=== PATIENT | female | born 2005 | race Asian ===

== ENCOUNTER 2025-03-11 22:08 | Inpatient (IN) | payer MEDICAID, OTHER ==
[~2025-03-11] VITALS: Ht 154.9 cm; Wt 88.1 kg
[~2025-03-11 22:08] MED LIST: LEVO-72 PO
[2025-03-11] MEDS ORDERED: 0.9% SODIUM CHLORIDE 10 ML SYRINGE IVP PRN (22:45)
[2025-03-11] MEDS: LEVALBUTEROL 1.25 MG/0.5 ML NEB SOLUTION NEB ONE (23:03)
[2025-03-11] MEDS: IPRATROPIUM BROMIDE 0.5 MG/2.5 ML NEB SOLUTION NEB ONE (23:03)
[2025-03-11 23:05] VITALS: PULSE 132; RESP 38; O2SAT 97
[2025-03-11 23:20] VITALS: PULSE 132; RESP 38; O2SAT 96
[2025-03-11 23:25] VITALS: PULSE 127; RESP 26; O2SAT 99
[2025-03-11 23:31] LABS: PLATELET COUNT (AUTO) 343 K/uL (150-450); RED BLOOD CELL COUNT(AUTO) 4.79 MIL/uL (4.00-5.20); RED CELL DISTRIBUTION WIDTH 13.2 % (11.5-14.5); WHITE BLOOD COUNT (AUTO) 18.1 K/uL (4.5-11.0)
[2025-03-11 23:37] LABS: CALCIUM, TOTAL 8.7 mg/dL (8.8-10.5); CREATININE 0.87 mg/dL (0.60-1.30); GLOMERULAR FILTR. RATE CALC > 60 mL/min (>60); GLUCOSE,RANDOM 110 mg/dL (70-110); SODIUM SERUM 139 mmol/L (136-145); UREA NITROGEN, BLOOD 11 mg/dL (7-18)
[2025-03-11 23:51] LABS: LACTIC ACID 2.1 mmol/L (0.4-2.0)
[2025-03-11] MEDS: DEXAMETHASONE SOD PHOS 4 MG/ML 5 ML VIAL IVP ONE (23:52)
[2025-03-11] MEDS ORDERED: SODIUM CHLORIDE 0.9% 100 ML ONE (23:57)
[2025-03-11] MEDS ORDERED: IOHEXOL 350 MG/ML 100 ML VIAL ONE (23:57)
[2025-03-11] MEDS ORDERED: 0.9% SODIUM CHLORIDE 10 ML SYRINGE IVP ONE (23:57)
[2025-03-12] VITALS (12 sets, daily range): BP systolic 120–130; BP diastolic 77–78; PULSE 87–118; RESP 11–22; TEMP 98.1–98.6; O2SAT 90–100
[2025-03-12] MEDS: AZITHROMYCIN 500 MG/NS 250 ML IV ONE (00:11)
[2025-03-12] MEDS: SODIUM CHLORIDE 0.9% 2,400 ML IV ONE (00:11)
[2025-03-12] MEDS ORDERED: 0.9% SODIUM CHLORIDE 15 ML NEB SOLUTION NEB ONE (00:23)
[2025-03-12] MEDS: LEVALBUTEROL 1.25 MG/0.5 ML NEB SOLUTION NEB ONE (00:33)
[2025-03-12] MEDS: LEVOFLOXACIN 750 MG/D5% WATER 150 ML IV ONE (01:30)
[2025-03-12] MEDS: GuaiFENesin/CODEINE [SUGAR-FREE] 200-20MG/10 ML LIQUID UDCUP PO ONE (01:30)
[2025-03-12 01:40] LABS: COVID AG,FIA SOURCE NASAL SWAB
[2025-03-12 02:04] LABS: SARS-COV2 (COVID) ANTIGEN,FIA Negative (Negative)
[2025-03-12 02:05] LABS: INFLUENZA TYPE A NEGATIVE FOR TYPE A (NEGATIVE); INFLUENZA TYPE B NEGATIVE FOR TYPE B (NEGATIVE)
[2025-03-12] MEDS ORDERED: ACETAMINOPHEN 325 MG TABLET PO PRN (02:45)
[2025-03-12] MEDS ORDERED: ZOLPIDEM TARTRATE 5 MG TABLET PO PRN (02:45)
[2025-03-12] MEDS ORDERED: HYDROCODONE/ACETAMINOPHEN 5-325 MG TABLET PO PRN (02:45)
[2025-03-12] MEDS ORDERED: MAGNESIUM HYDROXIDE SUSPENSION 30 ML UDCUP PO PRN (02:45)
[2025-03-12] MEDS ORDERED: BISACODYL 10 MG RECTAL RECTAL SUPPOSITORY PR PRN (02:45)
[2025-03-12] MEDS ORDERED: ONDANSETRON HCL 4 MG/2 ML VIAL IVP PRN (02:45)
[2025-03-12] MEDS ORDERED: MORPHINE SULFATE 4 MG/ML SYRINGE IVP PRN (02:45)
[2025-03-12] MEDS: SODIUM CHLORIDE 0.9% 1,000 ML IV ONE (04:49)
[2025-03-12] MEDS: CefTRIAXone 1 GM/DEXTROSE 50 ML IV SCH (05:47)
[2025-03-12] MEDS: ALBUTEROL SULFATE 2.5 MG/0.5 ML NEB SOLUTION NEB PRN (06:02)
[2025-03-12] MEDS: IPRATROPIUM BROMIDE 0.5 MG/2.5 ML NEB SOLUTION NEB PRN (06:02)
[2025-03-12] MEDS: IPRATROPIUM BROMIDE 0.5 MG/2.5 ML NEB SOLUTION NEB SCH (07:29)
[2025-03-12] MEDS: ALBUTEROL SULFATE 2.5 MG/0.5 ML NEB SOLUTION NEB SCH (07:29)
[2025-03-12] MEDS: HEPARIN SODIUM,PORCINE 5,000 UNITS/ML VIAL SQ SCH (08:00)
[2025-03-12] MEDS: BENZONATATE 100 MG CAPSULE PO SCH (08:27)
[2025-03-12] MEDS: GuaiFENesin SR 600 MG ER TABLET PO SCH (08:27)
[2025-03-12] MEDS: PANTOPRAZOLE SODIUM 40 MG DR TABLET PO SCH (08:27)
[2025-03-12] MEDS: DOCUSATE SODIUM 100 MG CAPSULE PO SCH (08:28)
[2025-03-12] MEDS ORDERED: POTASSIUM CHL 10 MEQ/WATER 50 ML IV PRN (15:00)
[2025-03-12] MEDS ORDERED: SODIUM CHLORIDE 0.9% 500 ML IV ONE (15:58)
[2025-03-12] MEDS: POTASSIUM CHLORIDE 20 MEQ ER TABLET PO PRN (16:25)
[2025-03-13] VITALS (14 sets, daily range): BP systolic 102–130; BP diastolic 48–72; PULSE 77–124; RESP 17–20; TEMP 97.7–98.4; O2SAT 92–100
[2025-03-13] MEDS: AZITHROMYCIN 500 MG/NS 250 ML IV SCH (01:18)
[2025-03-13 06:58] LABS: PLATELET COUNT (AUTO) 337 K/uL (150-450); RED BLOOD CELL COUNT(AUTO) 4.31 MIL/uL (4.00-5.20); RED CELL DISTRIBUTION WIDTH 13.4 % (11.5-14.5); WHITE BLOOD COUNT (AUTO) 19.6 K/uL (4.5-11.0)
[2025-03-13 07:08] LABS: CALCIUM, TOTAL 8.6 mg/dL (8.8-10.5); CREATININE 0.75 mg/dL (0.60-1.30); GLOMERULAR FILTR. RATE CALC > 60 mL/min (>60); GLUCOSE,RANDOM 148 mg/dL (70-110); SODIUM SERUM 136 mmol/L (136-145); UREA NITROGEN, BLOOD 10 mg/dL (7-18)
[2025-03-14 04:59] VITALS: BP 111/69; PULSE 77; RESP 18; TEMP 97.7; O2SAT 97
[2025-03-14 06:27] LABS: CALCIUM, TOTAL 8.4 mg/dL (8.8-10.5); CREATININE 0.78 mg/dL (0.60-1.30); GLOMERULAR FILTR. RATE CALC > 60 mL/min (>60); GLUCOSE,RANDOM 95 mg/dL (70-110); SODIUM SERUM 139 mmol/L (136-145); UREA NITROGEN, BLOOD 20 mg/dL (7-18)
[2025-03-14 06:36] LABS: PLATELET COUNT (AUTO) 334 K/uL (150-450); RED BLOOD CELL COUNT(AUTO) 4.27 MIL/uL (4.00-5.20); RED CELL DISTRIBUTION WIDTH 13.5 % (11.5-14.5); WHITE BLOOD COUNT (AUTO) 16.4 K/uL (4.5-11.0)
[2025-03-14 08:00] VITALS: BP 115/58; PULSE 110; PULSE 69; PULSE 96; RESP 18; RESP 20; TEMP 97.7; O2SAT 95; O2SAT 98; O2SAT 99
[2025-03-14] MEDS ORDERED: ALBU18HF12 IH (09:31)
[2025-03-14] MEDS ORDERED: LEVO750T68 PO (09:31)
[2025-03-14] MEDS ORDERED: PRED-554 PO (09:31)
[2025-03-14 14:00] VITALS: PULSE 106; RESP 20; O2SAT 100
== END 2025-03-14 10:50 | disposition home or self-care (01) | DRG 133 ==
LOC: EMS 23:26 → EDH 03-12 02:45 → 5N 03-12 10:15 → 6N 03-13 20:25
PROVIDERS: ADMIT Internal Medicine; ATTEND Internal Medicine
DX: J96.00 Acute respiratory failure, unspecified whether with hypoxia or hypercapnia (principal); J18.9 Pneumonia, unspecified organism; J45.909 Unspecified asthma, uncomplicated; Z68.36 Body mass index [BMI] 36.0-36.9, adult; E66.3 Overweight; R00.0 Tachycardia, unspecified; F17.200 Nicotine dependence, unspecified, uncomplicated; Z20.822 Contact with and (suspected) exposure to COVID-19; E87.6 Hypokalemia; Z88.0 Allergy status to penicillin; Z87.01 Personal history of pneumonia (recurrent); Z79.899 Other long term (current) drug therapy
CPT/HCPCS: 71045; 71275; 80048; 83605; 84132; 84145; 84703; 85025; 85379; 87040; 87804; 93005; 94640; 99291; J0456; J0696; J1100; J1644; J1956; J2919; J3480; J7030; J7040; J7050; 36415-L1; 36415-TC; J7613; Z7610